=== PATIENT | female | born 1940 | race Caucasian/White ===

== ENCOUNTER 2017-04-18 08:37 | Observation (INO) | payer MEDICARE ==
[~2017-04-18] VITALS: Ht 160 cm; Wt 76.9 kg
[~2017-04-18 08:37] MED LIST: ATEN1TAB73 PO; CALCCHW6 CHEW; DIOV160T60 PO; FISH1000 PO; FLOVENT110 MCG/A INH; FOLI1TAB PO; HYDR12.56 PO; LOVOXIL; TAB-TAB PO; VENTAER INH
[2017-04-18 08:44] VITALS: BP 198/88; PULSE 98; RESP 16; TEMP 98.2; O2SAT 96
--- NOTE | 2017-04-18 09:13 | PD ---
HPI Chief Complaint: Fall Time Seen by Provider: 08:51 Travel History International Travel<30 days: No Contact w/Intl Traveler<30days: No Traveled to known affect area: No History of Present Illness HPI The patient was seen and examined in the presence of the nurse. This patient got up in her bedroom at home and became dizzy and lightheaded. She lost her balance and fell and injured herself on the tile floor. Duration 1 hour. Symptoms severity is moderate. She struck the left side of her head on the ground. She did not have loss of consciousness. She does not have head or neck pain. Her chief complaint is right sided buttock pain. She also has a bit of rib pain on the left mid chest. Complains of generalized weakness and lightheadedness. No syncope. No chest pain. Tetanus is up-to-date. No alleviating factors. No exacerbating factors. She takes no blood thinners. She did report a bit of room spinning sensation prior to the fall. PFSH Past Medical History Asthma: Yes Cancer: No Cardiovascular Problems: Yes (HTN) COPD: Yes Diabetes: No Glaucoma: No Hepatitis: No Hiatal Hernia: No Hypertension: Yes Respiratory: Yes (ASTHMA, COPD) Thyroid Disease: Yes ?: Not Past Surgical History Oral Surgery: Yes (tonsillectomy) Pacemaker: No Tonsillectomy: Yes Other Surgery: Yes (lumpectomy) Social History Alcohol Use: Yes Tobacco Use: No Substance Use: No Allergies-Medications (Allergen,Severity, Reaction): Coded Allergies: No Known Allergies (Verified Adverse Reaction, Unknown, 04/18/17) Reported Meds & Prescriptions Reported Meds & Active Scripts Active Reported [[id number] ] 1 SQ Q 2 MO Vitamin D3 (Cholecalciferol) 2,000 Unit Cap 2,000 Units PO DAILY Singulair (Montelukast Sodium) 10 Mg Tab 10 Mg PO HS Ventolin Hfa 18 GM Inh (Albuterol Sulfate) 90 Mcg/Act Aer 2 Puff INH Q4-6H PRN Incruse Ellipta Inh (Umeclidinium [place] Inh) 0.0625 Mg/Act Inh 62.5 Mcg INH DAILY Losartan (Losartan Potassium) 50 Mg Tab 50 Mg PO DAILY Levothyroxine (Levothyroxine Sodium) 100 Mcg Tab 100 Mcg PO DAILY Review of Systems General / Constitutional: No: Fever Eyes: No: Visual changes HENT: Positive: Vertigo, Lightheadedness, No: Headaches Cardiovascular: No: Chest Pain or Discomfort Respiratory: No: Shortness of Breath Gastrointestinal: Positive: Nausea, No: Abdominal Pain Genitourinary: No: Dysuria Musculoskeletal: Positive: Weakness, Pain Skin: No Rash Neurologic: Positive: Weakness, Dizziness Psychiatric: No: Depression Endocrine: No: Polydipsia Hematologic/Lymphatic: No: Easy Bruising Physical Exam Narrative GENERAL: Well-nourished, well-developed patient with hypertension and anxiety and right hip pain after a fall . SKIN: Focused skin assessment reveals no rash and nodules. Skin is Warm and dry. HEAD: Has a 1.5 cm left parietal laceration. Normocephalic. EYES: Pupils equal and round. No scleral icterus. No injection or drainage. ENT: No nasal bleeding or discharge. Mucous membranes pink and moist. NECK: Trachea midline. No JVD. No midline tenderness of the neck. CARDIOVASCULAR: Regular rate and rhythm. No murmur appreciated. RESPIRATORY: No accessory muscle use. Clear to auscultation. Breath sounds equal bilaterally. GASTROINTESTINAL: Abdomen soft, non-tender, nondistended. Hepatic and splenic margins not palpable. MUSCULOSKELETAL: No obvious deformities. No clubbing. No cyanosis. No edema. Has some tenderness in the right buttock and right sacral area. Her hips roll good. Flexion of the right thigh produces pain. No long bone tenderness NEUROLOGICAL: Awake and alert. No obvious cranial nerve deficits. Motor grossly within normal limits. Normal speech. PSYCHIATRIC: Appropriate mood and affect; insight and judgment normal. Data Data Last Documented VS Vital Signs Date Time Temp Pulse Resp B/P (MAP) Pulse Ox O2 Delivery O2 Flow Rate FiO2 04/18/17 14:35 82 16 166/81 (109) 92 Room Air 04/18/17 09:50 2.00 04/18/17 08:44 98.2 Orders Orders Electrocardiogram (04/18/17 09:02) Basic Metabolic Panel (Bmp) (04/18/17 09:02) Complete Blood Count With Diff (04/18/17 09:02) Chest, Single Ap (04/18/17 09:02) Ecg Monitoring (04/18/17 09:02) Iv Access Insert/Monitor (04/18/17 09:02) Oximetry (04/18/17 09:02) Ondansetron Inj (Zofran Inj) (04/18/17 09:15) Sodium Chloride 0.9% Flush (Ns Flush) (04/18/17 09:15) Morphine Inj (Morphine Inj) (04/18/17 09:15) Morphine Inj (Morphine Inj) (04/18/17 09:15) Clonidine (Catapres) (04/18/17 09:15) Hip, Lat Only W Ap Pelvis (04/18/17 ) Ct Brain W/O Iv Contrast(Rout) (04/18/17 ) Ct Lumb Spine W/O Contrast (04/18/17 ) Ct Pelvis W/O Iv Contrast (04/18/17 ) Ct Thor Spine W/O Contrast (04/18/17 ) Ondansetron Inj (Zofran Inj) (04/18/17 13:30) Morphine Inj (Morphine Inj) (04/18/17 13:30) Ketorolac Inj (Toradol Inj) (04/18/17 13:30) Admit Order (Ed Use Only) (04/18/17 14:38) Labs Laboratory Tests Test 04/18/17 09:33 White Blood Count 7.3 TH/MM3 Red Blood Count 4.09 MIL/MM3 Hemoglobin 11.1 GM/DL Hematocrit 35.2 % Mean Corpuscular Volume 86.1 FL Mean Corpuscular Hemoglobin 27.1 PG Mean Corpuscular Hemoglobin Concent 31.5 % Red Cell Distribution Width 15.7 % Platelet Count 295 TH/MM3 Mean Platelet Volume 7.2 FL Neutrophils (%) (Auto) 67.6 % Lymphocytes (%) (Auto) 18.8 % Monocytes (%) (Auto) 6.5 % Eosinophils (%) (Auto) 4.0 % Basophils (%) (Auto) 3.1 % Neutrophils # (Auto) 4.8 TH/MM3 Lymphocytes # (Auto) 1.4 TH/MM3 Monocytes # (Auto) 0.5 TH/MM3 Eosinophils # (Auto) 0.3 TH/MM3 Basophils # (Auto) 0.2 TH/MM3 CBC Comment DIFF FINAL Differential Comment Blood Urea Nitrogen 12 MG/DL Creatinine 0.93 MG/DL Random Glucose 102 MG/DL Calcium Level 8.6 MG/DL Sodium Level 139 MEQ/L Potassium Level 4.5 MEQ/L Chloride Level 104 MEQ/L Carbon Dioxide Level 25.6 MEQ/L Anion Gap 9 MEQ/L Estimat Glomerular Filtration Rate 59 ML/MIN MDM Medical Decision Making Medical Screen Exam Complete: Yes Emergency Medical Condition: Yes Medical Record Reviewed: Yes Differential Diagnosis Pelvic fracture, hip fracture, cardiac arrhythmia Narrative Course I have reviewed the patient's electronic medical record. Patient is neurologically intact without headache or neck pain or LOC. She takes no blood thinners. There is no emergent indication for imaging of head or neck at this time I gave her dose of morphine and Zofran for symptom relief and a dose of clonidine for accelerated hypertension with systolic blood pressure of 200 I reviewed her chest x-ray which shows no fracture but there is a 1.2 cm nodule which I reviewed with the patient and she is advised to discuss with her primary physician I reviewed her pelvis x-ray which is negative for fracture I reviewed her right hip x-ray which is negative for fracture I reviewed her EKG which shows sinus rhythm without ectopy Extended cardiac monitoring shows sinus rhythm without ectopy CBC is normal Metabolic profile is normal LACERATION LOCATION: Left parietal scalp LENGTH: 1.5 cm NUMBER OF STITCHES/JOSE: 2 REPAIR: The area of the laceration was cleaned. No anesthesia required. The wound was explored without evidence of foreign body, tendon injury or neurovascular injury. The wound was closed using 2 jose in a single layer repair. The patient was advised to keep the area clean and dry. Patient tolerated the procedure well. Patient belatedly decided that she wanted a CAT scan of her brain done. Brain CT is normal I tried a blood the patient and she could not. She had exquisite pain in the right hip and buttock area. I sent her back to CT to rule out occult fracture. CT the pelvis is negative. CT of the lumbosacral and thoracic spines were done. She does have severe T11 compression fracture and a more mild T12 compression fracture. However, she does not have any pain or tenderness in this area and she notes that those are old fractures that she knew about. I gave her more time and another pain shot but still could not get her up out of bed. She cannot take a single step. [facility] who will observe her in the hospital for intractable pain and inability to handle it. He will consider rehabilitation center placement Diagnosis Primary Impression: Intractable low back pain Additional Impressions: Inability to ambulate due to right hip Head injury Qualified Codes: S09.90XA - Unspecified injury of head, initial encounter Admitting Information Admitting Physician Requests: Observation Additional Instructions: Med/Other Pt SpecificInfo: Other Alex Andrade MD Apr 18, 2017 09:13
[2017-04-18] MEDS ORDERED: cloNIDine HCL 0.1 MG TAB PO ONE (09:15)
[2017-04-18] MEDS ORDERED: MORPHINE SULFATE 2 MG/ML INJ IV PUSH ONE (09:15)
[2017-04-18] MEDS ORDERED: ONDANSETRON HCL 4 MG/2 ML VIAL IVP ONE ×2 (09:15→13:30)
[2017-04-18] MEDS ORDERED: MORPHINE SULFATE 4 MG/ML INJ IV PUSH ONE ×2 (09:15→13:30)
[2017-04-18] MEDS ORDERED: SODIUM CHLORIDE 0.9% FLUSH 10 ML FLUSH IVF PRN (09:15)
[2017-04-18 09:20] VITALS: BP 176/81; PULSE 82; RESP 18; O2SAT 94
[2017-04-18 09:36] LABS: AUTOMATED NEUTROPHIL # 4.8 TH/MM3 (1.8-7.7); BASOPHIL # 0.2 TH/MM3 (0-0.2); BASOPHIL % 3.1 % (0.0-2.0); EOSINOPHIL # 0.3 TH/MM3 (0-0.4); HEMATOCRIT 35.2 % (35.0-46.0); HEMOGLOBIN 11.1 GM/DL (11.6-15.3); LYMPH % 18.8 % (9.0-44.0); LYMPHOCYTE # 1.4 TH/MM3 (1.0-4.8); MEAN CELL VOLUME 86.1 FL (80.0-100.0); MEAN CORPUSCULAR HEMOGLOBIN 27.1 PG (27.0-34.0); MEAN CORPUSCULAR HGB CONC 31.5 % (32.0-36.0); MEAN PLATELET VOLUME 7.2 FL (7.0-11.0); MONO % 6.5 % (0.0-8.0); MONOCYTE # 0.5 TH/MM3 (0-0.9); NEUT % 67.6 % (16.0-70.0); PLATELET COUNT 295 TH/MM3 (150-450); RED BLOOD COUNT 4.09 MIL/MM3 (4.00-5.30); RED CELL DISTRIBUTION WIDTH 15.7 % (11.6-17.2); WHITE BLOOD COUNT 7.3 TH/MM3 (4.0-11.0)
[2017-04-18 09:50] VITALS: BP 174/79; PULSE 79; RESP 16; O2SAT 98
--- NOTE | 2017-04-18 09:54 | EKG ---
Date Performed: 04/18/2017 Time Performed: 09:06:56 PTAGE: 77 years EKG: Sinus rhythm WITH SINUS ARRHYTHMIA POSSIBLE LEFT ATRIAL ENLARGEMENT BORDERLINE ECG PREVIOUS TRACING : 09/07/1999 13.38 No change from previous tracing noted. DOCTOR: Gavin Jones Interpretating Date/Time 04/18/2017 09:53:49
[2017-04-18] MEDS ORDERED: LEVO100T5 PO (09:56)
[2017-04-18] MEDS ORDERED: VENTAER INH (09:56)
[2017-04-18] MEDS ORDERED: LOSA50TA PO (09:56)
[2017-04-18] MEDS ORDERED: MONT10TA2 PO (09:56)
[2017-04-18] MEDS ORDERED: VITA2000 PO ×2 (09:56→17:03)
[2017-04-18] MEDS ORDERED: UMEC1INH INH (09:56)
[2017-04-18] MEDS ORDERED: [UNRECOGNIZED DRUG - OTHER] SQ (09:56)
--- NOTE | 2017-04-18 10:01 | RADRPT ---
EXAM DATE/TIME: 04/18/2017 09:40 [facility] COMPARISON: No previous studies available for comparison. INDICATIONS : Fall, right hip pain. MEDICAL HISTORY : None. SURGICAL HISTORY : None. ENCOUNTER: Initial ACUITY: 1 day PAIN SCORE: 10/10 LOCATION: Right hip FINDINGS: A lateral view of the right hip with AP pelvis was obtained. No definite fractures, dislocations, ly tic or sclerotic lesions are seen. The joint space is well maintained. CONCLUSION: Negative for fracture Ron Jacobs MD FACR on April 18, 2017 at 9:58 Board Certified Radiologist. This report was verified electronically.
--- NOTE | 2017-04-18 10:03 | RADRPT ---
EXAM DATE/TIME: 04/18/2017 09:40 [facility] COMPARISON: No previous studies available for comparison. INDICATIONS : Fall, right side rib pain. MEDICAL HISTORY : Chronic obstructive pulmonary disease. Hypertension SURGICAL HISTORY : None. ENCOUNTER: Initial ACUITY: 1 day PAIN SCORE: 3/10 LOCATION: Right ribs FINDINGS: , Compensated cardiomegaly no rib fracture no pneumothorax. 1.2 cm nodule right midlung somewhat den se probably granuloma no prior films of comparison. CONCLUSION: 1.2 cm nodule right midlung. Mild compensated cardiomegaly Ron Jacobs MD FACR on April 18, 2017 at 9:59 Board Certified Radiologist. This report was verified electronically.
[2017-04-18 10:06] LABS: BICARBONATE 25.6 MEQ/L (21.0-32.0); CALCIUM 8.6 MG/DL (8.5-10.1)
[2017-04-18 10:10] LABS: CREATININE 0.93 MG/DL (0.50-1.00)
--- NOTE | 2017-04-18 10:58 | RADRPT ---
EXAM DATE/TIME: 04/18/2017 10:22 [facility] COMPARISON: CT BRAIN W/O CONTRAST, October 20, 2014, 16:01. INDICATIONS : Trauma. Fall. Posterior head laceration. RADIATION DOSE: 62.31 CTDIvol (mGy) MEDICAL HISTORY : Chronic obstructive pulmonary disease. Carcinoma, breast. Hypertension.Asthma. SURGICAL HISTORY : Right breast lumpectomy. ENCOUNTER: Initial ACUITY: 1 day PAIN SCALE: 2/10 LOCATION: cranial TECHNIQUE: Multiple contiguous axial images were obtained of the head. Using automated exposure control and adj ustment of the mA and/or kV according to patient size, radiation dose was kept as low as reasonably a chievable to obtain optimal diagnostic quality images. DICOM format image data is available electro nically for review and comparison. FINDINGS: CEREBRUM: The ventricles are normal for age. No evidence of midline shift, mass lesion, hemorrhage or acute in farction. No extra-axial fluid collections are seen. POSTERIOR FOSSA: The cerebellum and brainstem are intact. The 4th ventricle is midline. The cerebellopontine angle i s unremarkable. EXTRACRANIAL: The visualized portion of the orbits is intact. SKULL: The calvaria is intact. No evidence of skull fracture. Cephalohematoma on left no fracture. CONCLUSION: Intracranial contents unremarkable. Ron Jacobs MD FACR on April 18, 2017 at 10:55 Board Certified Radiologist. This report was verified electronically.
--- NOTE | 2017-04-18 12:40 | RADRPT ---
EXAM DATE/TIME: 04/18/2017 12:01 [facility] COMPARISON: No previous studies available for comparison. INDICATIONS : Trauma. Fall. Right sided pain. Unable to ambulate. RADIATION DOSE: 38.73 CTDIvol (mGy) MEDICAL HISTORY : Chronic obstructive pulmonary disease. Carcinoma, breast. Hypertension. SURGICAL HISTORY : Right breast lumpectomy. ENCOUNTER: Initial ACUITY: 1 day PAIN SCALE: 8/10 LOCATION: Right lumbar TECHNIQUE: Volumetric scanning of the lumbar spine was performed. Multiplanar reconstructions in the sagittal, coronal and oblique axial planes were performed. Using automated exposure control and adjustment of the mA and/or kV according to patient size, radiation dose was kept as low as reasonably achievable t o obtain optimal diagnostic quality images. DICOM format image data is available electronically for review and comparison. FINDINGS: Moderate anterior wedging of T11,. There is no motility of L1. T12-L1: Generalized bulging present with minimal neural foraminal encroachment. L1-L2: Mild bulging with moderate facet disease and minimal spinal stenosis. L2-L3: Generalized disc bulging ligament hypertrophy and moderate spinal stenosis. L3-L4: Generalized bulging present with neural from and closely the left the disc the neural foramen. The r ight root is uninvolved. Moderate facet disease is evident. L4-L5: Roxy bulging present. Minimal bilateral neural foramina encroachment. Mild facet disease. L5-S1: Mild disc bulging present moderate facet disease and bilateral SI joint degenerative changes worse on the left. CONCLUSION: Anterior wedging 40% T11 and 20% L1. Age indeterminate. Extensive degenerative oliver ges with spinal stenosis and nerve root impingement as described above. Ron Jacobs MD FACR on April 18, 2017 at 12:34 Board Certified Radiologist. This report was verified electronically.
--- NOTE | 2017-04-18 12:59 | RADRPT ---
EXAM DATE/TIME: 04/18/2017 12:01 [facility] COMPARISON: No previous studies available for comparison. INDICATIONS : Trauma. Fall. Right sided pain. Unable to ambulate. ORAL CONTRAST: No oral contrast ingested. RADIATION DOSE: 30.67 CTDIvol (mGy) MEDICAL HISTORY : Chronic obstructive pulmonary disease. Carcinoma, breast. Hypertension. SURGICAL HISTORY : Right breast lumpectomy. ENCOUNTER: Initial ACUITY: 1 day PAIN SCALE: 8/10 LOCATION: Right pelvis TECHNIQUE: Volumetric scanning of the pelvis was performed. Using automated exposure control and adjustment of the mA and/or kV according to patient size, radiation dose was kept as low as reasonably achievable t o obtain optimal diagnostic quality images. DICOM format image data is available electronically for review and comparison. FINDINGS: There are extensive degenerative changes at the pubic symphysis. I do not see hip fracture. PICA pe lvic fracture. The contents are unremarkable only minimal diverticuli sigmoid colon. CONCLUSION: Negatives, do not see etiology for the patient's right hip pain Ron Jacobs MD FACR on April 18, 2017 at 12:55 Board Certified Radiologist. This report was verified electronically.
--- NOTE | 2017-04-18 13:03 | RADRPT ---
EXAM DATE/TIME: 04/18/2017 12:11 [facility] COMPARISON: CT LUMBAR SPINE W/O CONTRAST, April 18, 2017, 12:01. INDICATIONS : Trauma. Fall. Right sided pain. Unable to ambulate. RADIATION DOSE: 36.44 CTDIvol (mGy) MEDICAL HISTORY : Chronic obstructive pulmonary disease. Carcinoma, breast. Hypertension. SURGICAL HISTORY : Right breast lumpectomy. ENCOUNTER: Initial ACUITY: 1 day PAIN SCALE: 8/10 LOCATION: Right thoracic spine TECHNIQUE: Volumetric scanning of the thoracic spine was performed. Multiplanar reconstructions in the sagittal , coronal and oblique axial planes were performed. Using automated exposure control and adjustment o f the mA and/or kV according to patient size, radiation dose was kept as low as reasonably achievable to obtain optimal diagnostic quality images. DICOM format image data is available electronically f or review and comparison. FINDINGS: Sagittal and coronal reformats demonstrate a severe compression fracture of the T11 vertebral body. T here is no significant bony retropulsion. There is mild compression fracture of the superior endplate of T12. The remainder of the vertebral bodies are intact. Axial imaging through the disc spaces is provided. These demonstrate scattered degenerative changes t hroughout the thoracic spine but no definite neural foraminal stenosis or spinal stenosis. Note is made of a left-sided disc protrusion at the L1-2 level. This is only partially visualized. The paraspinous soft tissues demonstrate a large hiatal hernia but are otherwise unremarkable. CONCLUSION: 1. Severe compression fracture of T11. There is no significant bony retropulsion. 2. Mild compression fracture of the superior plate of T12. Tao Jacobs MD on April 18, 2017 at 12:57 Board Certified Radiologist. This report was verified electronically.
[2017-04-18] MEDS ORDERED: KETOROLAC TROMETHAMINE 30 MG/ML (IVP) VIAL IV PUSH ONE (13:30)
[2017-04-18 14:35] VITALS: BP 166/81; PULSE 82; RESP 16; O2SAT 92
[2017-04-18] MEDS ORDERED: LORA-392 PO (17:04)
[2017-04-18 17:18] VITALS: BP 144/96; PULSE 93; RESP 15; TEMP 97.5; O2SAT 95
[2017-04-18] MEDS ORDERED: ALBUTEROL SULFATE 90 MCG/ACT HFA 8 GM INHALER INH PRN (17:30)
[2017-04-18] MEDS ORDERED: LACTULOSE SYRUP 20 GM/30 ML CUP PO PRN (17:30)
[2017-04-18] MEDS ORDERED: BISACODYL 10 MG SUPP RECTAL PRN (17:30)
[2017-04-18] MEDS ORDERED: SENNOSIDES 8.6 MG TAB PO PRN (17:30)
[2017-04-18] MEDS ORDERED: NALOXONE HCL 0.4 MG/ML AMP IV PUSH PRN (17:30)
[2017-04-18] MEDS ORDERED: SODIUM CHLORIDE 0.9% FLUSH 10 ML FLUSH IV FLUSH PRN (17:30)
[2017-04-18] MEDS ORDERED: MAGNESIUM HYDROXIDE SUSP 30 ML CUP PO PRN (17:30)
[2017-04-18] MEDS ORDERED: ONDANSETRON HCL 4 MG/2 ML VIAL IVP PRN (17:30)
[2017-04-18] MEDS ORDERED: TEMAZEPAM 15 MG CAP PO PRN (17:30)
--- NOTE | 2017-04-18 17:42 | HHI.HP ---
HPI Service [facility] Hospitalists Primary Care Physician Cheo Kurtz M.D. Admission Diagnosis intract r hip/pelvic pain, inability to amb Chief Complaint: fall with intractable hip low back pain unable to ambulate Travel History International Travel<30 Days: No Contact w/Intl Traveler <30 Da: No Traveled to Known Affected Are: No History of Present Illness This patient got up in her bedroom at home and became dizzy and lightheaded after turning head fast. She lost her balance and fell and injured herself on the tile floor. Earlier today. Symptoms severity is moderate. She struck the left side of her head on the ground. She did not have loss of consciousness. She does not have head or neck pain. Her chief complaint is right sided buttock pain. She also has a bit of rib pain on the left mid chest left lower thoracic and lumbar and pelvic area. Complains of some weakness with inability to walk without pain.. No syncope. No chest pain. Tetanus is up-to-date. No alleviating factors. No exacerbating factors. She takes no blood thinners. CT scan showed severe thoracic fracture T11 and mild fx tT12 and lumbar djd with nerve impingement, I will admit for evaluate neurosurgery and pain control and may need rehab. Review of Systems Musculoskeletal: COMPLAINS OF: Back pain Past Family Social History Past Medical History asthma,hypertension,copd,hypothyroid Past Surgical History thoracic fracture,tonsil Reported Medications Vitamin D3 (Cholecalciferol) 2,000 Unit Cap 2,000 Units PO DAILY Singulair (Montelukast Sodium) 10 Mg Tab 10 Mg PO HS Ventolin Hfa 18 GM Inh (Albuterol Sulfate) 90 Mcg/Act Aer 2 Puff INH Q4-6H PRN Incruse Ellipta Inh (Umeclidinium [place] Inh) 0.0625 Mg/Act Inh 62.5 Mcg INH DAILY Losartan (Losartan Potassium) 50 Mg Tab 50 Mg PO DAILY Levothyroxine (Levothyroxine Sodium) 100 Mcg Tab 100 Mcg PO DAILY Allergies: Coded Allergies: No Known Allergies (Verified Allergy, Unknown, 04/18/17) Social History NS,ND Physical Exam Vital Signs Vital Signs Date Time Temp Pulse Resp B/P (MAP) Pulse Ox O2 Delivery O2 Flow Rate FiO2 04/18/17 17:18 97.5 93 15 144/96 (112) 95 04/18/17 15:35 04/18/17 14:50 14 04/18/17 14:50 14 04/18/17 14:35 82 16 166/81 (109) 92 Room Air 04/18/17 09:50 79 16 174/79 (110) 98 Nasal Cannula 2.00 04/18/17 09:29 18 04/18/17 09:20 82 18 176/81 (112) 94 Room Air 04/18/17 09:05 Room Air 04/18/17 09:05 97 Room Air 04/18/17 08:44 98.2 98 16 198/88 (124) 96 Physical Exam GENERAL: This is a well-nourished, well-developed patient, in no apparent distress. SKIN: No rashes, ecchymoses or lesions. Cool and dry. HEAD: Atraumatic. Normocephalic. No temporal or scalp tenderness. EYES: Pupils equal round and reactive. Extraocular motions intact. No scleral icterus. No injection or drainage. ENT: Nose without bleeding, purulent drainage or septal hematoma. Throat without erythema, tonsillar hypertrophy or exudate. Uvula midline. Airway patent. NECK: Trachea midline. No JVD or lymphadenopathy. Supple, nontender, no meningeal signs. CARDIOVASCULAR: Regular rate and rhythm without murmurs, gallops, or rubs. RESPIRATORY: Clear to auscultation. Breath sounds equal bilaterally. No wheezes , rales, or rhonchi. GASTROINTESTINAL: Abdomen soft, non-tender, nondistended. No hepato-splenomegaly , or palpable masses. No guarding. MUSCULOSKELETAL: Extremities without clubbing, cyanosis, or edema. tenderness to left side thoracic and lumbar, effusion, or edema noted. No calf tenderness. Negative Homans sign bilaterally. NEUROLOGICAL: Awake and alert. Cranial nerves II through XII intact. Motor and sensory grossly within normal limits. Five out of 5 muscle strength in all muscle groups. Normal speech. Inability to move without pain Laboratory Laboratory Tests Test 04/18/17 09:33 White Blood Count 7.3 Red Blood Count 4.09 Hemoglobin 11.1 Hematocrit 35.2 Mean Corpuscular Volume 86.1 Mean Corpuscular Hemoglobin 27.1 Mean Corpuscular Hemoglobin Concent 31.5 Red Cell Distribution Width 15.7 Platelet Count 295 Mean Platelet Volume 7.2 Neutrophils (%) (Auto) 67.6 Lymphocytes (%) (Auto) 18.8 Monocytes (%) (Auto) 6.5 Eosinophils (%) (Auto) 4.0 Basophils (%) (Auto) 3.1 Neutrophils # (Auto) 4.8 Lymphocytes # (Auto) 1.4 Monocytes # (Auto) 0.5 Eosinophils # (Auto) 0.3 Basophils # (Auto) 0.2 CBC Comment DIFF FINAL Differential Comment Blood Urea Nitrogen 12 Creatinine 0.93 Random Glucose 102 Calcium Level 8.6 Sodium Level 139 Potassium Level 4.5 Chloride Level 104 Carbon Dioxide Level 25.6 Anion Gap 9 Estimat Glomerular Filtration Rate 59 Result Diagram: 04/18/1733 04/18/17932 Imaging Last 24 hours Impressions Chest X-Ray 04/18/17 0902 Signed Impressions: Service Date/Time: Tuesday, April 18, 2017 09:40 - CONCLUSION: 1.2 cm nodule right midlung. Mild compensated cardiomegaly Ron Jacobs MD FACR Thoracic Spine CT 04/18/17 0000 Signed Impressions: Service Date/Time: Tuesday, April 18, 2017 12:11 - CONCLUSION: 1. Severe compression fracture of T11. There is no significant bony retropulsion. 2. Mild compression fracture of the superior plate of T12. Tao Jacobs MD Pelvis CT 04/18/17 0000 Signed Impressions: Service Date/Time: Tuesday, April 18, 2017 12:01 - CONCLUSION: Negatives, do not see etiology for the patient's right hip pain Ron Jacobs MD FACR Lumbar Spine CT 04/18/17 0000 Signed Impressions: Service Date/Time: Tuesday, April 18, 2017 12:01 - CONCLUSION: Anterior wedging 40%% T11 and 20%% L1. Age indeterminate. Extensive degenerative changes with spinal stenosis and nerve root impingement as described above. Ron Jacobs MD FACR Hip and Pelvis X-Ray 04/18/17 0000 Signed Impressions: Service Date/Time: Tuesday, April 18, 2017 09:40 - CONCLUSION: Negative for fracture Ron Jacobs MD FACR Head CT 04/18/17 0000 Signed Impressions: Service Date/Time: Tuesday, April 18, 2017 10:22 - CONCLUSION: Intracranial contents unremarkable. Ron Jacobs MD FACR Course in er given morphine Caprini VTE Risk Assessment Caprini VTE Risk Assessment: No/Low Risk (score <= 1) Caprini Risk Assessment Model Point Value = 1 Point Value = 2 Point Value = 3 Point Value = 5 Age 41-60 Minor surgery BMI > 25 kg/m2 Swollen legs Varicose veins or History of unexplained or recurrent spontaneous Oral contraceptives or hormone replacement Sepsis (< 1 month) Serious lung disease, including pneumonia (< 1 month) Abnormal pulmonary function Acute myocardial infarction Congestive heart failure (< 1 month) History of inflammatory bowel disease Medical patient at bed rest Age 61-74 Arthroscopic surgery Major open surgery (> 45 min) Laparoscopic surgery (> 45 min) Malignancy Confined to bed (> 72 hours) Immobilizing plaster cast Central venous access Age >= 75 History of VTE Family history of VTE Factor V Leiden Prothrombin [id number] Lupus anticoagulant Anticardiolipin antibodies Elevated serum homocysteine Heparin-induced thrombocytopenia Other congenital or acquired thrombophilia Stroke (< 1 month) Elective arthroplasty Hip, pelvis, or leg fracture Acute spinal cord injury (< 1 month) Prophylaxis Regimen Total Risk Factor Score Risk Level Prophylaxis Regimen 0-1 Low Early ambulation 2 Moderate Order ONE of the following: *Sequential Compression Device (SCD) *Heparin 5000 units SQ BID 3-4 Higher Order ONE of the following medications: *Heparin 5000 units SQ TID *Enoxaparin/Lovenox 40 mg SQ daily (WT < 150 kg, CrCl > 30 mL/min) *Enoxaparin/Lovenox 30 mg SQ daily (WT < 150 kg, CrCl > 10-29 mL/min) *Enoxaparin/Lovenox 30 mg SQ BID (WT < 150 kg, CrCl > 30 mL/min) AND/OR *Sequential Compression Device (SCD) 5 or more Highest Order ONE of the following medications: *Heparin 5000 units SQ TID (Preferred with Epidurals) *Enoxaparin/Lovenox 40 mg SQ daily (WT < 150 kg, CrCl > 30 mL/min) *Enoxaparin/Lovenox 30 mg SQ daily (WT < 150 kg, CrCl > 10-29 mL/min) *Enoxaparin/Lovenox 30 mg SQ BID (WT < 150 kg, CrCl > 30 mL/min) AND *Sequential Compression Device (SCD) Assessment and Plan Problem List: (1) Intractable low back pain ICD Codes: M54.5 - Low back pain Status: Acute Plan: CT shows severe thoracic fracture T11 and mild fx T12 and lumbar djd with nerve root impingement will continue pain meds and ask for neurosurgical evaluation. (2) Inability to ambulate due to right hip ICD Codes: R26.2 - Difficulty in walking, not elsewhere classified Status: Acute Plan: due to back problems on CT pain control (3) Head injury ICD Codes: S09.90XA - Unspecified injury of head, initial encounter Status: Acute Plan: patient did hit head and required 2 jose placed back of head stable Assessment and Plan further plan as case develops will get PT to evaluate Code Status full Discussed Condition With patient Problem Qualifiers (1) Head injury: Qualified Codes: S09.90XA - Unspecified injury of head, initial encounter Darnell Fu MD Apr 18, 2017 17:42
[2017-04-18] MEDS: LORazepam 0.5 MG TAB PO PRN (18:44)
[2017-04-18] MEDS: MORPHINE SULFATE 2 MG/ML INJ IV PUSH PRN (18:44)
[2017-04-18 20:00] VITALS: BP 141/65; PULSE 80; RESP 18; TEMP 97.7; O2SAT 93
[2017-04-18] MEDS: CYCLOBENZAPRINE HCL 10 MG TAB PO SCH (20:47)
[2017-04-18] MEDS: DOCUSATE SODIUM 50 MG/SENNA 8.6 MG TAB PO SCH (20:47)
[2017-04-18] MEDS: MONTELUKAST SODIUM 10 MG TAB PO SCH ×2 (20:48→20:50)
[2017-04-18] MEDS: SODIUM CHLORIDE 0.9% FLUSH 10 ML FLUSH IV FLUSH SCH (20:48)
[2017-04-19] VITALS (7 sets, daily range): BP systolic 118–149; BP diastolic 58–70; PULSE 84–105; RESP 16–20; TEMP 97.1–100; O2SAT 91–95
[2017-04-19] MEDS: CYCLOBENZAPRINE HCL 10 MG TAB PO SCH ×3 (05:30→21:18)
[2017-04-19] MEDS: CHOLECALCIFEROL (VIT D3) 1000 UNIT TAB PO SCH (07:54)
[2017-04-19] MEDS: LOSARTAN 50 MG TAB PO SCH (07:54)
[2017-04-19] MEDS: LEVOTHYROXINE SODIUM 100 MCG TAB PO SCH (07:54)
[2017-04-19] MEDS: DOCUSATE SODIUM 50 MG/SENNA 8.6 MG TAB PO SCH ×2 (07:55→21:19)
[2017-04-19] MEDS: SODIUM CHLORIDE 0.9% FLUSH 10 ML FLUSH IV FLUSH SCH ×2 (07:55→21:18)
[2017-04-19] MEDS: MONTELUKAST SODIUM 10 MG TAB PO SCH ×2 (07:57→21:19)
[2017-04-19] MEDS: MORPHINE SULFATE 2 MG/ML INJ IV PUSH PRN ×4 (07:58→21:22)
[2017-04-19] MEDS ORDERED: INCRUSE ELLIPTA 62.5 MCG INH SCH (09:00)
--- NOTE | 2017-04-19 12:45 | HHI.PR ---
Subjective Remarks Patient with continued back pain on any movement ,also when moving having increasing SOB and does have history of COPD will add duo nebulizer. Neurosurgery looked at CT scan results and there is nothing further they recommend will need pain medication and rehab. I will arrange. Objective Vitals GENERAL: SKIN: Warm and dry. HEAD: Atraumatic. Normocephalic. EYES: Pupils equal and round. No scleral icterus. No injection or drainage. ENT: No nasal bleeding or discharge. Mucous membranes pink and moist. NECK: Trachea midline. No JVD. CARDIOVASCULAR: Regular rate and rhythm. RESPIRATORY: No accessory muscle use. Rhonchi bases GASTROINTESTINAL: Abdomen soft, non-tender, nondistended. Hepatic and splenic margins not palpable. MUSCULOSKELETAL: Pain on movement thoracic and lumbar NEUROLOGICAL: Awake and alert. No obvious cranial nerve deficits. Motor grossly within normal limits. Five out of 5 muscle strength in the arms and legs. Normal speech. PSYCHIATRIC: Appropriate mood and affect; insight and judgment normal. Vital Signs Date Time Temp Pulse Resp B/P (MAP) Pulse Ox O2 Delivery O2 Flow Rate FiO2 04/19/17 10:23 94 04/19/17 08:00 97.1 105 16 149/70 (96) 95 04/19/17 00:00 98.2 84 20 129/62 (84) 94 04/18/17 20:00 97.7 80 18 141/65 (90) 93 04/18/17 17:18 97.5 93 15 144/96 (112) 95 04/18/17 15:35 04/18/17 14:50 14 04/18/17 14:50 14 04/18/17 14:35 82 16 166/81 (109) 92 Room Air Result Diagram: 04/18/17 0933 04/18/17 0933 Imaging Last 24 hours Impressions Chest X-Ray 04/18/17 0902 Signed Impressions: Service Date/Time: Tuesday, April 18, 2017 09:40 - CONCLUSION: 1.2 cm nodule right midlung. Mild compensated cardiomegaly Ron Jacobs MD FACR Thoracic Spine CT 04/18/17 0000 Signed Impressions: Service Date/Time: Tuesday, April 18, 2017 12:11 - CONCLUSION: 1. Severe compression fracture of T11. There is no significant bony retropulsion. 2. Mild compression fracture of the superior plate of T12. Tao Jacobs MD Pelvis CT 04/18/17 0000 Signed Impressions: Service Date/Time: Tuesday, April 18, 2017 12:01 - CONCLUSION: Negatives, do not see etiology for the patient's right hip pain Ron Jacobs MD FACR Lumbar Spine CT 04/18/17 0000 Signed Impressions: Service Date/Time: Tuesday, April 18, 2017 12:01 - CONCLUSION: Anterior wedging 40%% T11 and 20%% L1. Age indeterminate. Extensive degenerative changes with spinal stenosis and nerve root impingement as described above. MD OBINNA BryanR Hip and Pelvis X-Ray 04/18/17 0000 Signed Impressions: Service Date/Time: Tuesday, April 18, 2017 09:40 - CONCLUSION: Negative for fracture MD OBINNA BryanR Head CT 04/18/17 0000 Signed Impressions: Service Date/Time: Tuesday, April 18, 2017 10:22 - CONCLUSION: Intracranial contents unremarkable. Ron Jacobs MD FACR A/P Problem List: (1) Intractable low back pain ICD Codes: M54.5 - Low back pain Status: Acute Plan: CT shows severe thoracic fracture T11 and mild fx T12 and lumbar djd with nerve root impingement will continue pain meds and neurosurgery feels no surgical plan and to continue with pain control and rehab and they can see as outpatient (2) Inability to ambulate due to right hip ICD Codes: R26.2 - Difficulty in walking, not elsewhere classified Status: Acute Plan: due to back problems on CT pain control (3) Head injury ICD Codes: S09.90XA - Unspecified injury of head, initial encounter Status: Acute Plan: patient did hit head and required 2 jose placed back of head stable (4) Thoracic compression fracture ICD Codes: S22.000A - Wedge compression fracture of unspecified thoracic vertebra, initial encounter for closed fracture Plan: fractures based on CT scan will need rehab (5) Shortness of breath ICD Codes: R06.02 - Shortness of breath Plan: probably related to COPD and due to pain unable to take good breaths will add duo nebulizer (6) COPD (chronic obstructive pulmonary disease) ICD Codes: J44.9 - Chronic obstructive pulmonary disease, unspecified Status: Acute Plan: as above duonebulizer ordered uses ellipta at home Assessment and Plan await PT and will arrange rehab Discharge Planning as above to rehab center Problem Qualifiers (1) Head injury: Qualified Codes: S09.90XA - Unspecified injury of head, initial encounter Darnell Fu MD Apr 19, 2017 12:45
[2017-04-19] MEDS: ALBUTEROL SULFATE 90 MCG/ACT HFA 8 GM INHALER INH PRN (14:13)
[2017-04-19] MEDS: RESP: ALBUTEROL 2.5 MG/IPRATROPIUM 0.5 MG NEB (SCH) NEB ×2 (15:14→15:18)
[2017-04-19] MEDS: RESP: ALBUTEROL 0.63 MG/3 ML NEB (SCH) NEB ×2 (15:59→21:41)
[2017-04-19] MEDS: LORazepam 0.5 MG TAB PO PRN (21:59)
[2017-04-20] VITALS: BP 122/59; PULSE 84; RESP 20; TEMP 97.9; O2SAT 93
[2017-04-20] MEDS: RESP: ALBUTEROL 0.63 MG/3 ML NEB (SCH) NEB ×3 (03:36→15:05)
[2017-04-20] MEDS: CYCLOBENZAPRINE HCL 10 MG TAB PO SCH ×2 (06:41→14:11)
[2017-04-20 08:00] VITALS: BP 181/79; PULSE 105; RESP 16; TEMP 97.1; O2SAT 96
[2017-04-20] MEDS: LEVOTHYROXINE SODIUM 100 MCG TAB PO SCH (08:07)
[2017-04-20] MEDS: DOCUSATE SODIUM 50 MG/SENNA 8.6 MG TAB PO SCH (08:07)
[2017-04-20] MEDS: SODIUM CHLORIDE 0.9% FLUSH 10 ML FLUSH IV FLUSH SCH (08:07)
[2017-04-20] MEDS: LOSARTAN 50 MG TAB PO SCH (08:07)
[2017-04-20] MEDS: CHOLECALCIFEROL (VIT D3) 1000 UNIT TAB PO SCH (08:07)
[2017-04-20] MEDS: ALBUTEROL SULFATE 90 MCG/ACT HFA 8 GM INHALER INH PRN (08:08)
[2017-04-20 09:17] VITALS: O2SAT 96
[2017-04-20] MEDS: MORPHINE SULFATE 2 MG/ML INJ IV PUSH PRN (10:34)
[2017-04-20 12:00] VITALS: BP 138/61; PULSE 99; RESP 16; TEMP 99; O2SAT 93
[2017-04-20] MEDS ORDERED: CYCL10TA PO (12:09)
[2017-04-20] MEDS ORDERED: ALBU0.63 NEB (12:09)
[2017-04-20] MEDS ORDERED: REST15CA PO (12:09)
[2017-04-20] MEDS ORDERED: LORA-392 PO (12:09)
[2017-04-20] MEDS ORDERED: HYDR-3516 PO (12:09)
--- NOTE | 2017-04-20 12:15 | HHI.DS ---
Discharge Summary Admission Date Apr 18, 2017 at 14:40 Admitting Diagnosis intract r hip/pelvic pain, inability to amb (1) Intractable low back pain Diagnosis: Principal ICD Codes: M54.5 - Low back pain Status: Acute (2) Inability to ambulate due to right hip Diagnosis: Principal ICD Codes: R26.2 - Difficulty in walking, not elsewhere classified Status: Acute (3) Head injury Diagnosis: Secondary ICD Codes: S09.90XA - Unspecified injury of head, initial encounter Status: Acute (4) Thoracic compression fracture Diagnosis: Principal ICD Codes: S22.000A - Wedge compression fracture of unspecified thoracic vertebra, initial encounter for closed fracture (5) Shortness of breath Diagnosis: Secondary ICD Codes: R06.02 - Shortness of breath (6) COPD (chronic obstructive pulmonary disease) Diagnosis: Secondary ICD Codes: J44.9 - Chronic obstructive pulmonary disease, unspecified Status: Acute Brief History This patient got up in her bedroom at home and became dizzy and lightheaded after turning head fast. She lost her balance and fell and injured herself on the tile floor. Earlier today. Symptoms severity is moderate. She struck the left side of her head on the ground. She did not have loss of consciousness. She does not have head or neck pain. Her chief complaint is right sided buttock pain. She also has a bit of rib pain on the left mid chest left lower thoracic and lumbar and pelvic area. Complains of some weakness with inability to walk without pain.. No syncope. No chest pain. Tetanus is up-to-date. No alleviating factors. No exacerbating factors. She takes no blood thinners. CT scan showed severe thoracic fracture T11 and mild fx tT12 and lumbar djd with nerve impingement, I will admit for evaluate neurosurgery and pain control and may need rehab. CBC/BMP: 04/18/17 0933 04/18/17 0933 Significant Findings Laboratory Tests Test 04/18/17 09:33 Hemoglobin 11.1 GM/DL (11.6-15.3) Mean Corpuscular Hemoglobin Concent 31.5 % (32.0-36.0) Basophils (%) (Auto) 3.1 % (0.0-2.0) Estimat Glomerular Filtration Rate 59 ML/MIN (>89) PE at Discharge GENERAL: SKIN: Warm and dry. HEAD: Atraumatic. Normocephalic. EYES: Pupils equal and round. No scleral icterus. No injection or drainage. ENT: No nasal bleeding or discharge. Mucous membranes pink and moist. NECK: Trachea midline. No JVD. CARDIOVASCULAR: Regular rate and rhythm. RESPIRATORY: No accessory muscle use. Clear to auscultation. Breath sounds equal bilaterally. GASTROINTESTINAL: Abdomen soft, non-tender, nondistended. Hepatic and splenic margins not palpable. MUSCULOSKELETAL: Extremities without clubbing, cyanosis, or edema. No obvious deformities. Pain on movement NEUROLOGICAL: Awake and alert. No obvious cranial nerve deficits. Motor grossly within normal limits. Five out of 5 muscle strength in the arms and legs. Normal speech. PSYCHIATRIC: Appropriate mood and affect; insight and judgment normal. Transfer Summary Patient admitted with intractable back ,hip pain from fall CT scan showed T11 fracture and slight T 12 fx with lumbar nerve root impingement . CT reviewed by neuro surgery NO surgical problem for PT and pain control and they will see as out patient . Patient was seen by PT and recommend rehab. Patient also with hx copd and did have some wheezing which improved with addition albuterol nebulizer will continue at rehab. Discharge today. Pt Condition on Discharge: Fair Discharge Disposition: Discharge to SNF Discharge Instructions DIET: Follow Instructions for: Heart Healthy Diet Activities you can perform: Regular-No Restrictions Other Activity Instructions: further activity as per Physical therapy New Medications: Hydrocodone/Acetaminophen (Hydrocodone-Acetamin 5-325 mg) 5 Mg-325 Mg Tablet 5-325 TAB PO Q6HR PRN for pain for 10 Days, #30 BOX 1 tablet q 6h prn Albuterol Neb (Albuterol Neb) 0.63 Mg/3 Ml Neb 0.63 MG NEB Q6HR NEB for asthma MDD 2.4 approx for 7 Days, NEBULE 0 Refills Cyclobenzaprine (Flexeril) 10 Mg Tab 10 MG PO Q8HR for back pain MDD 30, #21 TAB 0 Refills use tid prn Temazepam (Restoril) 15 Mg Cap 15 MG PO HS PRN for INSOMNIA for 10 Days, #10 CAP 0 Refills hs prn Changed Medications: Lorazepam (Ativan) 0.5 Mg Tab 0.5 MG PO DAILY PRN for ANXIETY AND/OR AGITATION for 28 Days, TAB 0 Refills ( Medication details modified) tid prn Continued Medications: Albuterol 18 GM Inh (Ventolin Hfa 18 GM Inh) 90 Mcg/Act Aer 2 PUFF INH Q4-6H PRN for SHORTNESS OF BREATH, #1 INHALER 0 Refills Cholecalciferol (Vitamin D3) 2,000 Unit Cap 2000 UNITS PO DAILY for Nutritional Supplement, #1 BOTTLE 0 Refills Levothyroxine (Levothyroxine) 100 Mcg Tab 100 MCG PO DAILY for Thyroid, #30 TAB 0 Refills Losartan (Losartan) 50 Mg Tab 50 MG PO DAILY for Blood Pressure Management, #30 TAB 0 Refills Montelukast (Singulair) 10 Mg Tab 10 MG PO HS, #30 TAB 0 Refills Umeclidinium [place] Inh (Incruse Ellipta Inh) 0.0625 Mg/Act Inh 62.5 MCG INH DAILY for Treat COPD, #1 INHALER 0 Refills Darnell Fu MD Apr 20, 2017 12:15
[2017-04-20 16:00] VITALS: BP 140/79; PULSE 102; RESP 16; TEMP 97.1; O2SAT 94
== END 2017-04-20 18:21 ==
LOC: PHED 08:37 → PHEDA 14:40 → PH3A 15:49
PROVIDERS: ADMIT Internal Medicine; ATTEND Internal Medicine
DX: S22.089A Unspecified fracture of T11-T12 vertebra, initial encounter for closed fracture (principal); S09.90XA Unspecified injury of head, initial encounter; J44.9 Chronic obstructive pulmonary disease, unspecified; I11.9 Hypertensive heart disease without heart failure; E03.9 Hypothyroidism, unspecified; M48.00 Spinal stenosis, site unspecified; M47.816 Spondylosis without myelopathy or radiculopathy, lumbar region; W01.0XXA Fall on same level from slipping, tripping and stumbling without subsequent striking against object, initial encounter
CPT/HCPCS: 12001; 70450; 71045; 72128; 72131; 72192; 73501; 80048; 85025; 93005; 94640; 94664; 96374; 96375; 96376; 97162; 99285; G0378; G8987; G8988; J1885; J2270; J2405; J7613